=== PATIENT | male | born 1990 | race Caucasian/White ===

== ENCOUNTER 2016-05-12 21:01 | Emergency (ER) | payer SELFPAY ==
[~2016-05-12] VITALS: Ht 170.2 cm; Wt 64.7 kg
[~2016-05-12 21:01] MED LIST: IBUP600T26 PO; Probiotics; ZOFR4TAB3 SL
[2016-05-12 21:02] VITALS: BP 138/98; PULSE 88; RESP 18; TEMP 98.6; O2SAT 96
== END 2016-05-13 03:27 | disposition left against medical advice (07) ==
LOC: NED 21:01
DX: R11.2 Nausea with vomiting, unspecified (principal)
CPT/HCPCS: 99281